=== PATIENT | male | born 1985 | race Caucasian/White ===

== ENCOUNTER 2017-09-12 20:36 | Emergency (ER) | payer OTHER ==
[~2017-09-12] VITALS: Ht 167.6 cm; Wt 95.8 kg
[2017-09-12 20:44] VITALS: TEMP 36.7; Ht 167.6 cm; Wt 95.8 kg
[2017-09-12] MEDS ORDERED: PROPARACAINE HCL 0.5% OP SOLN 15 ML BTL OP STA (21:00)
[2017-09-12] MEDS ORDERED: PERCOCET HOME PACK PO ONE (21:00)
[2017-09-12] MEDS ORDERED: ASPI81TA28 PO (21:16)
[2017-09-12] MEDS ORDERED: PRED50TA PO (21:33)
[2017-09-12] MEDS ORDERED: VALA1TAB2 PO (21:33)
[2017-09-12] MEDS ORDERED: OXYC-57 PO (21:33)
--- NOTE | 2017-09-12 21:34 | EMERGENCY ROOM VISIT NOTE ---
History First contact with patient: 20:46 Chief Complaint: RASH Stated Complaint: SHINGLES?? History of Present Illness The patient is a 32 year old male who presents to the Emergency Room with complaints of a painful rash that started on his left upper back earlier this evening. He also reports some burning and itching on his left upper eyelid. He denies any changes in vision. It is not itchy. He has not taken anything [id number] for pain. The patient is not immunocompromised. He denies any fever or chills. Review of Systems 10 system review performed and negative unless noted in HPI or below Past Medical/Surgical History History of bronchitis Social History Smoking Status: Never Smoker Marital Status: Occupation Status: employed Current/Historical Medications Scheduled Aspirin (Aspirin Ec), 81 MG PO DAILY Prednisone (Prednisone), 50 MG PO DAILY Valacyclovir Hcl (Valtrex), 1,000 MG PO TID Scheduled PRN Oxycodone/Acetaminophen 5MG/325MG (Percocet 5MG/325MG), 1-2 TABS PO Q4H PRN for Pain Physical Exam Vital Signs Date Time Temp Pulse Resp B/P (MAP) Pulse Ox O2 Delivery O2 Flow Rate FiO2 09/12/17 21:41 80 20 127/76 96 09/12/17 20:44 36.7 75 18 132/89 99 Room Air Right Eye Acuity: 20/15 Left Eye Acuity: 20/15 Physical Exam VITALS: Vitals are noted on the nurse's note and reviewed by myself. Vital signs stable. GENERAL: 32-year-old male, in no acute distress, nondiaphoretic, well-developed well-nourished. SKIN: There is an erythematous, linear, slightly raised lesion approximately 7 cm on the left upper back near the axilla. There are 2 mm, circular vesicular lesions in this area. The erythema blanches. It does not cross the midline. HEAD: Normocephalic atraumatic. EYES: Pupils equal round and reactive to light and accommodation. Conjunctivae without injection, sclerae without icterus. Extraocular movements intact. Insert Slit Lamp Exam Slit Lamp Examination was performed of the left eye(s). Alcaine drops were applied to the affected eye(s) for proper anesthetization. The affected eye(s) were stained with Fluorescein stain to precipitate adequate visualization of any conjunctival/scleral excoriations or ulcers. The patients face was comfortably rested on the chin guard of the slit lamp apparatus. The lights were dimmed and the affected eye(s) were thoroughly examined under microscopy using the blue light. No uptake was present On the cornea. Additionally, the eye(s) were examined under microscopy using the regular light. Close examination revealed no other abnormalities. Patient tolerated the procedure well and no complications were met. NECK: Supple without nuchal rigidity. No JVD. MUSCULOSKELETAL:. Strength 5/5 throughout. NEURO: Patient was alert and oriented to person place and time. Normal sensation to touch. No focal neurological deficits. Medical Decision & Procedures Medications Administered Medications (Trade) Dose Ordered Sig/Marium Route Start Time Stop Time Status Last Admin Dose Admin Valacyclovir HCl (Valtrex Tab) 1,000 mg NOW ONCE PO 09/12/17 21:00 09/12/17 21:02 DC 09/12/17 21:06 1,000 MG Prednisone (PredniSONE TAB) 60 mg NOW STAT PO 09/12/17 21:00 09/12/17 21:02 DC 09/12/17 21:06 60 MG Oxycodone/ Acetaminophen (Percocet 5/ 325MG Home Pack) 1 homepack UD ONCE PO 09/12/17 21:00 09/12/17 21:02 DC 09/12/17 21:00 1 HOMEPACK ED Course The patient was seen and examined A slit-lamp exam was performed. Please see my note. The patient was given 1 dose of valacyclovir 1 g p.o. He was also given prednisone 50 mg p.o. The patient was given a home pack of Percocet Discharge instructions were reviewed, and he was discharged in good condition Medical Decision Differential diagnosis: Herpes zoster, bacterial infection, fungal infection, viral exanthem, allergic reaction This patient is a 32-year-old male presents to the emergency department with a painful rash on his back, in addition to some similar symptoms on his left eyelid. On exam, the rash on the back appears to be early shingles. There is no significant rash on the left eyelid. A slit-lamp exam was performed. No uptake such as dendritic lesions were noted. I do believe this patient likely has early shingles. I do not suspect any involvement of the eye. He will be treated with antivirals, steroids and pain medication. He was encouraged to follow-up with his primary care physician in the next 2-3 days for recheck. He agrees to return to the ER with any worsening symptoms. This chart was completed in part utilizing [employer] Speech Voice Recognition software. Attempts were made to minimize the grammatical errors, random word insertions, pronoun errors and incomplete sentences. Any formal questions or concerns about the content, text or information contained within the body of this dictation should be directly addressed to the provider for clarification. Impression Primary Impression: Herpes zoster Departure Information Dispostion Home / Self-Care Condition GOOD Prescriptions Valacyclovir Hcl (VALTREX) 1 Gm Tab 1000 MG PO TID for 7 Days, #21 TAB Prov: Xiomy Schmitz PA-C 09/12/17 Oxycodone/Acetaminophen 5MG/325MG (PERCOCET 5MG/325MG) Tab 1-2 TABS PO Q4H Y for Pain, #20 TAB For Initial Treatment Prov: Xiomy Schmitz PA-C 09/12/17 Prednisone (Prednisone) 50 Mg Tab 50 MG PO DAILY for 4 Days, #4 TAB Prov: Xiomy Schmitz PA-C 09/12/17 Referrals No Doctor, Assigned (PCP) Patient Instructions [facility] Additional Instructions You have been evaluated in the emergency department for a painful rash. The rash, particularly on your back is likely early shingles. Please take the entire course of valacyclovir and prednisone as prescribed Ibuprofen 600 mg every 6 hours for pain Percocet 1-2 tabs every 4 hours for severe pain. Do not drink alcohol or drive while taking this medication. This may be taken with ibuprofen, but avoid Tylenol. This medication may cause constipation. I highly recommend having a recheck from a primary care physician in the next 3- 5 days Please avoid contact with women and infants Please do not hesitate to return to the emergency department with any new, worsening or concerning symptoms; especially, spreading of the rash across to the right side of your back, severe pain, problems with vision or fever It was a pleasure participating in your care tonight
[2017-09-12 21:41] VITALS: BP 127/76; PULSE 80; O2SAT 96
== END 2017-09-12 21:42 | disposition home or self-care (01) ==
LOC: C.EDB 20:38 → C.EDD 21:42
DX: B02.9 Zoster without complications (principal); Z87.09 Personal history of other diseases of the respiratory system; Z79.82 Long term (current) use of aspirin